=== PATIENT | male | born 1960 | race Caucasian/White ===

== ENCOUNTER 2018-05-04 18:13 | Inpatient (IN) | payer MEDICARE, OTHER, SELFPAY ==
[~2018-05-04] VITALS: Ht 188 cm; Wt 63.7 kg
[2018-05-04] MEDS ORDERED: SODIUM CHLORIDE FLUSH 10ML SYR IVF ONE (18:30)
[2018-05-04] MEDS ORDERED: PROMETHAZINE 25 MG/ML, 1ML IM ONE (18:30)
[2018-05-04] MEDS ORDERED: LORazepam 2 MG/ML, 1ML IVPush ONE (18:30)
[2018-05-04] MEDS ORDERED: ONDANSETRON 2MG/ML, 2ML IVPush ONE (18:30)
[2018-05-04] MEDS ORDERED: SODIUM CHLORIDE 0.9% 1,000ML IVBOLUS ONE (18:30)
[2018-05-04] MEDS ORDERED: ONDANSETRON 2MG/ML, 2ML ONE (18:48)
--- NOTE | 2018-05-04 18:48 | NUR ---
TASK RN: PT PRESENTS TO ED W/ CO N/V X ONE WEEK. "I VOMIT EVERYTIME I TRY TO EAT ANYTHING". PT REPORTS HEAVY, DAILY ETOH USE. LAST ETOH THIS AM WO EMESIS. PT ON BLOOD THINNERS D/T HX OF AFIB, DENIES BLOOD IN EMESIS OR STOOL; ABD NON-TENDER. DENIES CP/SOB/ABD PAIN/DIARRHEA/URINARY SYMPTOMS. LBM: TODAY, NORMAL. PT PWD; MM MOIST. IV ESTABLISHED. LABS DRAWN. BP/SPO2 MONITORING IN PLACE. REPORT TO OTIS ABDULLAHI
[2018-05-04] MEDS ORDERED: PROMETHAZINE 25 MG/ML, 1ML ONE (18:49)
[2018-05-04] MEDS ORDERED: LORazepam 2 MG/ML, 1ML ONE (18:49)
[2018-05-04 18:52] LABS: BASOPHILS # (AUTO) 0.02 x10^3/uL (0-0.1); BASOPHILS % (AUTO) 0 % (0-1); EOSINOPHILS % (AUTO) 0 % (1-7); LYMPHOCYTES # (AUTO) 1.49 x10^3/uL (1-3.4); LYMPHOCYTES % (AUTO) 23 % (22-44); MD NO; MEAN CORPUSCULAR HEMOGLOBIN 33.7 pg (27.5-34.5); MEAN PLATELET VOLUME 6.8 fL (7.4-10.4); MONOCYTES # (AUTO) 0.49 x10^3/uL (0.2-0.8); MONOCYTES % (AUTO) 8 % (2-9); NEUTROPHILS # (AUTO) 4.43 x10^3/uL (1.8-6.8); NEUTROPHILS % (AUTO) 69 % (42-75); PLATELET COUNT 163 x10^3/uL (130-400); RED CELL DISTRIBUTION WIDTH 12.4 % (9.4-14.8)
--- NOTE | 2018-05-04 18:55 | NUR ---
REPORT FROM JAGDEEP BERG. PT GIVEN MEDS PER ERP ORDER. PT STATES LAST ETOH AT 0800. CIWA SCORE 0-NO N/V AT THIS TIME, NO TREMORS, PT CALM. WARM BLANKET PROVIDED, CALL LIGHT WITHIN REACH.
[2018-05-04 18:59] LABS: ALANINE AMINOTRANSFERASE 124 U/L (12-78); ALBUMIN 4.5 g/dL (3.4-5.0); ANION GAP 9 mmol/L (5-15); CALCIUM 8.4 mg/dL (8.5-10.1); CHLORIDE 98 mmol/L (98-107); CREATININE 0.76 mg/dL (0.7-1.3)
[2018-05-04 19:01] LABS: ALKALINE PHOSPHATASE 116 U/L (45-117); BILIRUBIN,TOTAL 0.7 mg/dL (0.2-1.0)
[2018-05-04] MEDS ORDERED: METO25TA2 PO (19:55)
[2018-05-04] MEDS ORDERED: GABA300C10 PO (19:55)
[2018-05-04] MEDS ORDERED: HYDR-3653 PO (19:55)
[2018-05-04] MEDS ORDERED: APIX5TAB PO (19:55)
[2018-05-04] MEDS ORDERED: LISI2.5T PO (19:55)
--- NOTE | 2018-05-04 20:36 | NUR ---
MED REC COMPLETED, PT UPDATED ON POC. HOME MEDS TO PHARMACY.
--- NOTE | 2018-05-04 20:55 | NUR ---
REPORT TO SEE BERG. PT READY FOR TRANSPORT.
[2018-05-04 21:20] VITALS: BP 111/72
[2018-05-04] MEDS ORDERED: LORazepam 2 MG/ML, 1ML IV PRN ×5 (21:30)
[2018-05-04] MEDS ORDERED: LABETALOL 5MG/ML, 20ML IVPush PRN (21:30)
[2018-05-04 22:36] VITALS: BP 88/52
[2018-05-04 23:26] LABS: INTERNATIONAL NORMALIZED RATIO 0.99 (0.93-1.1); PROTHROMBIN TIME 10.4 Seconds (9.6-11.5)
[2018-05-04] MEDS: GABAPENTIN 300 MG CAPSULE PO SCH (23:41)
[2018-05-05] MEDS: POTASSIUM CHLORIDE 20 MEQ, MAGNESIUM SULFATE 2 GM, THIAMINE 200 MG, MVI ADULT 10 ML, FO... IV SCH ×2 (00:29→07:17)
[2018-05-05 02:09] VITALS: BP 118/72
[2018-05-05] MEDS: CHLORDIAZEPOXIDE 25 MG CAPSULE PO SCH ×2 (02:23→09:14)
[2018-05-05] MEDS: METOPROLOL SUCCINATE 25 MG TAB.ER.24H PO SCH (05:21)
[2018-05-05 05:50] LABS: BASOPHILS # (AUTO) 0.03 x10^3/uL (0-0.1); BASOPHILS % (AUTO) 0 % (0-1); EOSINOPHILS % (AUTO) 0 % (1-7); LYMPHOCYTES # (AUTO) 1.76 x10^3/uL (1-3.4); LYMPHOCYTES % (AUTO) 20 % (22-44); MD NO; MEAN CORPUSCULAR HEMOGLOBIN 33.9 pg (27.5-34.5); MEAN CORPUSCULAR HGB CONC 34.4 g/dL (33.2-36.2); MEAN CORPUSCULAR VOLUME 98.3 fL (81-97); MONOCYTES % (AUTO) 7 % (2-9); NEUTROPHILS % (AUTO) 73 % (42-75); PLATELET COUNT 129 x10^3/uL (130-400); RED BLOOD COUNT 4.01 x10^6/uL (4.38-5.82); RED CELL DISTRIBUTION WIDTH 12.4 % (9.4-14.8)
[2018-05-05 06:02] LABS: CHLORIDE 101 mmol/L (98-107)
[2018-05-05 06:13] LABS: ALANINE AMINOTRANSFERASE 113 U/L (12-78); ALBUMIN 3.8 g/dL (3.4-5.0); ALKALINE PHOSPHATASE 101 U/L (45-117); ANION GAP 11 mmol/L (5-15); BILIRUBIN,TOTAL 0.8 mg/dL (0.2-1.0); CALCIUM 7.4 mg/dL (8.5-10.1); CHOL/HDL RATIO 1.3; CHOLESTEROL, TOTAL 172 mg/dL (140-239); CREATININE 0.67 mg/dL (0.7-1.3); HDL CHOL % 76 % (26-37); HDL CHOLESTEROL (DIRECT) 130 mg/dL (40-60); LDL CHOLESTEROL,CALCULATED 33 mg/dL (54-169); LDL/HDL RATIO 0.3 (0.5-3.0); TOTAL PROTEIN 6.5 g/dL (6.4-8.2); TRIGLYCERIDES 47 mg/dL (50-200); VLDL CHOLESTEROL 9 mg/dL (0-25)
[2018-05-05 07:07] VITALS: BP 122/76
[2018-05-05] MEDS: FAMOTIDINE 20 MG TABLET PO SCH ×2 (09:13→20:44)
[2018-05-05] MEDS: GABAPENTIN 300 MG CAPSULE PO SCH ×2 (09:13→20:44)
[2018-05-05] MEDS: APIXABAN 5 MG TABLET PO SCH ×2 (09:13→20:44)
[2018-05-05] MEDS: LISINOPRIL 5 MG TABLET PO SCH (09:14)
[2018-05-05 10:48] LABS: CLOSTRIDIUM DIFFICILE ANTIGEN NEGATIVE; CLOSTRIDIUM DIFFICILE TOXIN NEGATIVE (Negative)
[2018-05-05 13:12] VITALS: BP 126/78
[2018-05-05] MEDS: BACLOFEN 10 MG TABLET PO SCH ×3 (13:51→20:44)
[2018-05-05] MEDS: LORazepam 2 MG/ML, 1ML IVPush PRN ×2 (13:51→17:05)
[2018-05-05 19:24] VITALS: BP 107/58
[2018-05-06] MEDS: LORazepam 2 MG/ML, 1ML IVPush PRN ×3 (00:39→09:06)
[2018-05-06 01:11] VITALS: BP 129/77
[2018-05-06 05:31] LABS: BASOPHILS # (AUTO) 0.02 x10^3/uL (0-0.1); BASOPHILS % (AUTO) 0 % (0-1); EOSINOPHILS # (AUTO) 0.01 x10^3/uL (0-0.4); EOSINOPHILS % (AUTO) 0 % (1-7); LYMPHOCYTES # (AUTO) 1.12 x10^3/uL (1-3.4); LYMPHOCYTES % (AUTO) 11 % (22-44); MD NO; MEAN CORPUSCULAR HEMOGLOBIN 33.4 pg (27.5-34.5); MEAN CORPUSCULAR HGB CONC 33.9 g/dL (33.2-36.2); MEAN CORPUSCULAR VOLUME 98.6 fL (81-97); MEAN PLATELET VOLUME 7.5 fL (7.4-10.4); MONOCYTES % (AUTO) 5 % (2-9); NEUTROPHILS # (AUTO) 8.54 x10^3/uL (1.8-6.8); NEUTROPHILS % (AUTO) 84 % (42-75); PLATELET COUNT 111 x10^3/uL (130-400); RED BLOOD COUNT 4.17 x10^6/uL (4.38-5.82); RED CELL DISTRIBUTION WIDTH 12.1 % (9.4-14.8)
[2018-05-06 05:38] LABS: CALCIUM 8.2 mg/dL (8.5-10.1); CHLORIDE 102 mmol/L (98-107)
[2018-05-06 05:44] LABS: ALANINE AMINOTRANSFERASE 102 U/L (12-78); ALBUMIN 3.5 g/dL (3.4-5.0); ALKALINE PHOSPHATASE 111 U/L (45-117); ANION GAP 10 mmol/L (5-15); BILIRUBIN,TOTAL 1.1 mg/dL (0.2-1.0); CREATININE 0.53 mg/dL (0.7-1.3); TOTAL PROTEIN 6.6 g/dL (6.4-8.2)
[2018-05-06 05:51] VITALS: BP 109/82
[2018-05-06] MEDS: METOPROLOL SUCCINATE 25 MG TAB.ER.24H PO SCH (05:52)
[2018-05-06] MEDS ORDERED: POTASSIUM CHLORIDE 40 MEQ in SODIUM CHLORIDE 0.9% 500 ML IV ONE (07:00)
[2018-05-06 07:14] VITALS: BP 126/79
[2018-05-06] MEDS ORDERED: POTASSIUM CHLORIDE 20 MEQ TAB.ER.PRT PO SCH (08:00)
[2018-05-06] MEDS: GABAPENTIN 300 MG CAPSULE PO SCH (08:32)
[2018-05-06] MEDS: FAMOTIDINE 20 MG TABLET PO SCH (08:33)
[2018-05-06] MEDS: LISINOPRIL 5 MG TABLET PO SCH (08:33)
[2018-05-06] MEDS: APIXABAN 5 MG TABLET PO SCH (08:34)
[2018-05-06] MEDS: BACLOFEN 10 MG TABLET PO SCH (08:46)
[2018-05-06] MEDS ORDERED: THIAMINE 100MG TABLET PO SCH (09:00)
[2018-05-06] MEDS ORDERED: MULTIVITAMIN 1 TABLET PO SCH (09:00)
[2018-05-06] MEDS ORDERED: NICOTINE 21 MG/24 HR PATCH.TD24 TD SCH (09:00)
[2018-05-06] MEDS ORDERED: FOLIC ACID 1 MG TABLET PO SCH (09:00)
[2018-05-06] MEDS ORDERED: NICOTINE 21 MG/24 HR PATCH.TD24 ONE (09:02)
== END 2018-05-06 13:33 | disposition left against medical advice (07) | DRG 432 ==
LOC: ED 19:21 → EDIP 20:38 → 4NOR 21:20 → 4EST 22:38
PROVIDERS: ADMIT Internal Medicine; ATTEND Internal Medicine
DX: K70.10 Alcoholic hepatitis without ascites (principal); K85.20 Alcohol induced acute pancreatitis without necrosis or infection; F10.239 Alcohol dependence with withdrawal, unspecified; F10.229 Alcohol dependence with intoxication, unspecified; I48.91 Unspecified atrial fibrillation; E86.0 Dehydration; F12.90 Cannabis use, unspecified, uncomplicated; I10 Essential (primary) hypertension; Y90.8 Blood alcohol level of 240 mg/100 ml or more; Z66 Do not resuscitate; Z79.01 Long term (current) use of anticoagulants; Z89.611 Acquired absence of right leg above knee
CPT/HCPCS: 36415; 80053; 80061; 80307; 83690; 83735; 84443; 85025; 85610; 87324; 93005; 96361; 96372; 96374; 96375; G0378; J2405; J2550; J3411; J3475; J3480; J7042; J2060; J7030; J7040

== ENCOUNTER 2018-05-08 07:05 | Emergency (ER) | payer MEDICARE ==
[~2018-05-08] VITALS: Ht 188 cm; Wt 62.0 kg
[~2018-05-08 07:05] MED LIST: APIX5TAB PO; GABA300C10 PO; HYDR-3653 PO; LISI2.5T PO; METO25TA2 PO
[2018-05-08 07:08] VITALS: BP 125/75
[2018-05-08] MEDS ORDERED: ONDANSETRON ODT 4 MG PO ONE (08:00)
[2018-05-08] MEDS ORDERED: LORazepam 1MG TABLET PO ONE (08:00)
[2018-05-08] MEDS ORDERED: PROMETHAZINE 25 MG/ML, 1ML IM ONE (08:00)
[2018-05-08] MEDS ORDERED: PROMETHAZINE 25 MG/ML, 1ML ONE (08:09)
[2018-05-08] MEDS ORDERED: LORazepam 1MG TABLET ONE (08:09)
[2018-05-08] MEDS ORDERED: ONDANSETRON ODT 4 MG ONE (08:10)
== END 2018-05-08 09:16 | disposition home or self-care (01) ==
LOC: ED 09:10
DX: R25.1 Tremor, unspecified (principal); R45.1 Restlessness and agitation; I10 Essential (primary) hypertension
CPT/HCPCS: 96372; 99283; J2550

== ENCOUNTER → 2019-10-05 | Outpatient (CLI) | payer MEDICARE ==
[~2019-10-05] MED LIST changes: +FENTANYL PF 100 MCG/2ML ONE; +FLUMAZENIL 0.1 MG/1 ML, 5ML ONE; +MIDAZOLAM 1 MG/ML, 5ML ONE; +NALOXONE 1 MG/ML, 2ML ONE
== END | disposition home or self-care (01) ==
LOC: RAD 11:53
PROVIDERS: ATTEND Nurse Practitioner
DX: G43.909 Migraine, unspecified, not intractable, without status migrainosus (principal); G93.89 Other specified disorders of brain; G31.9 Degenerative disease of nervous system, unspecified; R41.0 Disorientation, unspecified; I48.0 Paroxysmal atrial fibrillation; I10 Essential (primary) hypertension; Z89.512 Acquired absence of left leg below knee; Z79.899 Other long term (current) drug therapy; Z72.89 Other problems related to lifestyle
CPT/HCPCS: 70551; 99156; 99157; J2250; J3010; J2310

== ENCOUNTER 2020-09-22 14:31 | Emergency (ER) | payer MEDICARE ==
[~2020-09-22] VITALS: Ht 185.4 cm; Wt 64.0 kg
[~2020-09-22 14:31] MED LIST changes: -FENTANYL PF 100 MCG/2ML ONE; -FLUMAZENIL 0.1 MG/1 ML, 5ML ONE; -MIDAZOLAM 1 MG/ML, 5ML ONE; -NALOXONE 1 MG/ML, 2ML ONE
[2020-09-22 14:49] VITALS: BP 123/72
--- NOTE | 2020-09-22 14:59 | NUR ---
RN TRANSFER IN ROOM TO ASSESS PT.
--- NOTE | 2020-09-22 15:06 | NUR ---
CALLED [facility] [phone]. WAITING FOR RIDE.
== END 2020-09-22 16:23 | disposition home or self-care (01) ==
LOC: ED 16:15
DX: R62.7 Adult failure to thrive (principal); I48.91 Unspecified atrial fibrillation; I10 Essential (primary) hypertension; F17.200 Nicotine dependence, unspecified, uncomplicated; Z68.1 Body mass index [BMI] 19.9 or less, adult
CPT/HCPCS: 93005; 99283